=== PATIENT | female | born 1980 | race Caucasian/White ===

== ENCOUNTER 2016-11-24 11:14 | Emergency (ER) | payer MEDICAID ==
[~2016-11-24] VITALS: Ht 165.1 cm; Wt 69.5 kg
[~2016-11-24 11:14] MED LIST: LAMO150T3 PO; LAMO200T3 PO; LEVE100020 PO
[2016-11-24 11:19] VITALS: BP 147/81
== END 2016-11-24 12:11 ==
LOC: ED 12:05
DX: J45.31 Mild persistent asthma with (acute) exacerbation (principal); J20.8 Acute bronchitis due to other specified organisms; B96.89 Other specified bacterial agents as the cause of diseases classified elsewhere; F17.210 Nicotine dependence, cigarettes, uncomplicated
CPT/HCPCS: 99283

== ENCOUNTER 2017-01-19 17:24 | Emergency (ER) | payer MEDICAID ==
[~2017-01-19] VITALS: Ht 162.6 cm; Wt 69.0 kg
[2017-01-19 17:31] VITALS: BP 135/87
[2017-01-19] MEDS ORDERED: LIDOCAINE 1%, 20ML SQ ONE (18:00)
[2017-01-19] MEDS ORDERED: LIDOCAINE 1%, 20ML ONE (18:40)
== END 2017-01-19 19:43 | disposition home or self-care (01) ==
LOC: ED 19:20
DX: N76.2 Acute vulvitis (principal); N76.4 Abscess of vulva; G40.909 Epilepsy, unspecified, not intractable, without status epilepticus
CPT/HCPCS: 56405

== ENCOUNTER 2017-01-21 18:00 | Emergency (ER) | payer MEDICAID ==
[~2017-01-21] VITALS: Ht 165.1 cm; Wt 68.6 kg
[2017-01-21 18:52] LABS: HEMATOCRIT 41.8 % (34.6-47.8); HEMOGLOBIN 13.9 g/dL (11.7-16.4); WHITE BLOOD COUNT 7.2 x10^3/uL (3.4-10)
[2017-01-21] MEDS ORDERED: ONDANSETRON 2MG/ML, 2ML IVPush ONE (19:00)
[2017-01-21] MEDS ORDERED: HYDROmorphone 1 MG/ML, 1ML IVPush PRN (19:00)
[2017-01-21] MEDS ORDERED: SODIUM CHLORIDE FLUSH 10ML SYR IVF ONE (19:00)
[2017-01-21] MEDS ORDERED: HYDROcodone/APAP 5/325 TABLET PO ONE (19:00)
[2017-01-21 19:08] LABS: ASPARTATE AMINO TRANSFERASE 55 U/L (15-37); BLOOD UREA NITROGEN 13 mg/dL (7-18)
[2017-01-21] MEDS ORDERED: HYDROcodone/APAP 5/325 TABLET ONE (19:08)
[2017-01-21 19:39] VITALS: BP 116/76
== END 2017-01-21 19:41 | disposition home or self-care (01) ==
LOC: ED 18:55
DX: N76.4 Abscess of vulva (principal); R10.2 Pelvic and perineal pain; G40.909 Epilepsy, unspecified, not intractable, without status epilepticus
CPT/HCPCS: 36415; 80053; 85025; 99284

== ENCOUNTER 2017-02-23 10:28 | Emergency (ER) | payer MEDICAID ==
[~2017-02-23] VITALS: Ht 162.6 cm; Wt 68.2 kg
[2017-02-23 10:52] VITALS: BP 112/72
[2017-02-23] MEDS ORDERED: LIDOCAINE 1%, 20ML SQ ONE (11:30)
[2017-02-23] MEDS ORDERED: LIDOCAINE 1%, 10ML ONE (11:40)
[2017-02-23] MEDS ORDERED: IBUPROFEN 200 MG TABLET PO ONE (12:00)
[2017-02-23] MEDS ORDERED: IBUPROFEN 200 MG TABLET ONE (12:17)
== END 2017-02-23 12:22 | disposition home or self-care (01) ==
LOC: ED 12:00
DX: L02.214 Cutaneous abscess of groin (principal); L03.314 Cellulitis of groin; J45.909 Unspecified asthma, uncomplicated
CPT/HCPCS: 10060; 56405; 99283; 99284

== ENCOUNTER 2017-04-30 17:21 | Inpatient (IN) | payer MEDICAID ==
[~2017-04-30] VITALS: Ht 162.6 cm; Wt 67.3 kg
[2017-04-30] MEDS ORDERED: DIPHENHYDRAMINE 50 MG/ML, 1ML IM ONE (17:30)
[2017-04-30] MEDS ORDERED: FAMOTIDINE 20 MG TABLET PO ONE (17:30)
[2017-04-30] MEDS ORDERED: DIPHENHYDRAMINE 50 MG CAPSULE ONE (17:47)
[2017-04-30] MEDS ORDERED: FAMOTIDINE 20 MG TABLET ONE ×2 (17:47→20:57)
[2017-04-30] MEDS ORDERED: ALBU2.5V11 NEB (17:53)
[2017-04-30] MEDS ORDERED: DIPHENHYDRAMINE 50 MG CAPSULE PO ONE (17:56)
[2017-04-30] MEDS ORDERED: SODIUM CHLORIDE FLUSH 10ML SYR IVF ONE (19:30)
[2017-04-30] MEDS ORDERED: EPINEPHRINE 1 MG/ML, 1ML ONE (19:30)
[2017-04-30] MEDS ORDERED: EPINEPHRINE 1 MG/ML, 1ML SQ ONE (19:30)
[2017-04-30 20:30] LABS: BASOPHILS # (AUTO) 0.03 x10^3/uL (0-0.1); BASOPHILS % (AUTO) 0 % (0-1); EOSINOPHILS # (AUTO) 0.02 x10^3/uL (0-0.4); EOSINOPHILS % (AUTO) 0 % (1-7); LYMPHOCYTES # (AUTO) 2.15 x10^3/uL (1-3.4); LYMPHOCYTES % (AUTO) 22 % (22-44); MD NO; MEAN CORPUSCULAR HEMOGLOBIN 30.2 pg (27.0-34.8); MEAN CORPUSCULAR HGB CONC 33.1 g/dL (32.4-35.8); MEAN CORPUSCULAR VOLUME 91.3 fL (80-100); MEAN PLATELET VOLUME 6.7 fL (7.4-10.4); MONOCYTES # (AUTO) 0.26 x10^3/uL (0.2-0.8); MONOCYTES % (AUTO) 3 % (2-9); NEUTROPHILS # (AUTO) 7.52 x10^3/uL (1.8-6.8); NEUTROPHILS % (AUTO) 75 % (42-75); PLATELET COUNT 565 x10^3/uL (130-400); RED BLOOD COUNT 4.51 x10^6/uL (3.82-5.3); RED CELL DISTRIBUTION WIDTH 14.7 % (9.6-15.2)
[2017-04-30] MEDS ORDERED: methylPREDNISolone SOD SUCC 125 MG/2 ML IVPush ONE (20:30)
[2017-04-30] MEDS ORDERED: SODIUM CHLORIDE 0.9%, 500ML IVBOLUS ONE (20:30)
[2017-04-30] MEDS ORDERED: methylPREDNISolone SOD SUCC 125 MG/2 ML IVPush SCH (20:30)
[2017-04-30 20:38] LABS: ALANINE AMINOTRANSFERASE 24 U/L (12-78); ALBUMIN 3.8 g/dL (3.4-5.0); ANION GAP 8 mmol/L (5-15); CHLORIDE 109 mmol/L (98-107); CREATININE 0.72 mg/dL (0.55-1.02)
[2017-04-30 20:41] LABS: ALKALINE PHOSPHATASE 90 U/L (45-117); BILIRUBIN,TOTAL 0.3 mg/dL (0.2-1.0); TOTAL PROTEIN 7.5 g/dL (6.4-8.2)
[2017-04-30] MEDS ORDERED: LEVE500T8 PO (20:51)
[2017-04-30] MEDS ORDERED: LAMO150T2 PO (20:51)
[2017-04-30] MEDS ORDERED: LEVETIRACETAM 500 MG TABLET ONE (20:57)
[2017-04-30] MEDS ORDERED: methylPREDNISolone SOD SUCC 125 MG/2 ML ONE (20:58)
[2017-04-30] MEDS ORDERED: DIPHENHYDRAMINE 50 MG/ML, 1ML IVPush PRN (21:00)
[2017-04-30] MEDS ORDERED: LAMOTRIGINE 100 MG TABLET PO SCH (21:00)
[2017-04-30] MEDS ORDERED: LEVETIRACETAM 500 MG TABLET PO SCH (21:00)
[2017-04-30] MEDS: methylPREDNISolone SOD SUCC 125 MG/2 ML IVPush SCH (21:00)
[2017-04-30] MEDS: LEVETIRACETAM 500 MG TABLET PO SCH (21:03)
[2017-04-30] MEDS: LAMOTRIGINE 100 MG TABLET PO SCH (21:03)
[2017-04-30] MEDS: FAMOTIDINE 20 MG TABLET PO SCH (21:04)
[2017-04-30] MEDS ORDERED: BISACODYL 10 MG SUPP PR PRN (21:30)
[2017-04-30] MEDS ORDERED: ACETAMINOPHEN 325 MG TABLET PO PRN (21:30)
[2017-04-30] MEDS ORDERED: ONDANSETRON 2MG/ML, 2ML IVPush PRN (21:30)
[2017-04-30] MEDS: NICOTINE 14MG/24 HR PATCH.TD24 TD SCH (21:30)
[2017-04-30] MEDS ORDERED: POLYETHYLENE GLYCOL 17 GM PACKET PO PRN (21:30)
[2017-04-30] MEDS: SODIUM CHLORIDE FLUSH 10ML SYR IVF SCH (21:30)
[2017-04-30 21:54] VITALS: BP 124/73
[2017-04-30] MEDS ORDERED: ALBUTEROL SULFATE 2.5 MG/3 ML NPPB PRN (23:00)
[2017-05-01 03:00] VITALS: BP 115/62
[2017-05-01] MEDS: methylPREDNISolone SOD SUCC 125 MG/2 ML IVPush SCH ×3 (06:18→20:39)
[2017-05-01 06:37] VITALS: BP 102/48
[2017-05-01] MEDS: LEVETIRACETAM 500 MG TABLET PO SCH ×2 (08:09→20:39)
[2017-05-01] MEDS: LAMOTRIGINE 100 MG TABLET PO SCH ×2 (08:09→20:39)
[2017-05-01] MEDS: SENNA/DOCUSATE TABLET PO SCH (08:10)
[2017-05-01] MEDS: SODIUM CHLORIDE FLUSH 10ML SYR IVF SCH ×2 (08:10→20:40)
[2017-05-01] MEDS: FAMOTIDINE 20 MG TABLET PO SCH ×2 (08:10→20:39)
[2017-05-01 12:44] VITALS: BP 116/60
[2017-05-01] MEDS ORDERED: FLU VACC QS2017-18 (36MOS+) UP/PF 0.5 ML IM-VACC ONE (19:30)
[2017-05-01 20:36] VITALS: BP 126/66
[2017-05-01] MEDS: NICOTINE 14MG/24 HR PATCH.TD24 TD SCH (20:39)
[2017-05-02 03:55] VITALS: BP 115/58
[2017-05-02] MEDS: methylPREDNISolone SOD SUCC 125 MG/2 ML IVPush SCH ×3 (05:16→21:22)
[2017-05-02 07:59] VITALS: BP 113/59
[2017-05-02] MEDS: SENNA/DOCUSATE TABLET PO SCH (09:17)
[2017-05-02] MEDS: LAMOTRIGINE 100 MG TABLET PO SCH (09:18)
[2017-05-02] MEDS: SODIUM CHLORIDE FLUSH 10ML SYR IVF SCH ×2 (09:18→21:22)
[2017-05-02] MEDS: LEVETIRACETAM 500 MG TABLET PO SCH ×2 (09:18→21:23)
[2017-05-02] MEDS: FAMOTIDINE 20 MG TABLET PO SCH ×2 (09:18→21:23)
[2017-05-02 13:40] VITALS: BP 116/62
[2017-05-02 18:32] VITALS: BP 128/66
[2017-05-02] MEDS: NICOTINE 14MG/24 HR PATCH.TD24 TD SCH (21:30)
[2017-05-03 01:28] VITALS: BP 119/60
[2017-05-03] MEDS: methylPREDNISolone SOD SUCC 125 MG/2 ML IVPush SCH (04:22)
[2017-05-03 05:50] LABS: CHLORIDE 108 mmol/L (98-107)
[2017-05-03 05:55] LABS: ANION GAP 8 mmol/L (5-15); CREATININE 0.62 mg/dL (0.55-1.02)
[2017-05-03 06:14] LABS: BASOPHILS # (AUTO) 0.01 x10^3/uL (0-0.1); BASOPHILS % (AUTO) 0 % (0-1); EOSINOPHILS % (AUTO) 0 % (1-7); LYMPHOCYTES % (AUTO) 10 % (22-44); MD NO; MEAN CORPUSCULAR HEMOGLOBIN 30.5 pg (27.0-34.8); MEAN CORPUSCULAR HGB CONC 33.2 g/dL (32.4-35.8); MEAN CORPUSCULAR VOLUME 91.9 fL (80-100); MEAN PLATELET VOLUME 7.6 fL (7.4-10.4); MONOCYTES # (AUTO) 0.54 x10^3/uL (0.2-0.8); MONOCYTES % (AUTO) 6 % (2-9); NEUTROPHILS # (AUTO) 7.76 x10^3/uL (1.8-6.8); NEUTROPHILS % (AUTO) 84 % (42-75); PLATELET COUNT 444 x10^3/uL (130-400); RED BLOOD COUNT 4.11 x10^6/uL (3.82-5.3); RED CELL DISTRIBUTION WIDTH 14.9 % (9.6-15.2)
[2017-05-03 07:15] VITALS: BP 128/70
[2017-05-03] MEDS ORDERED: POTASSIUM CHLORIDE 20 MEQ TAB.ER.PRT PO ONE (07:30)
[2017-05-03] MEDS: SENNA/DOCUSATE TABLET PO SCH (09:52)
[2017-05-03] MEDS: FAMOTIDINE 20 MG TABLET PO SCH (10:09)
[2017-05-03] MEDS: LEVETIRACETAM 500 MG TABLET PO SCH (10:09)
[2017-05-03] MEDS: SODIUM CHLORIDE FLUSH 10ML SYR IVF SCH (10:09)
[2017-05-03] MEDS ORDERED: PRED20TA PO (13:49)
== END 2017-05-03 16:06 | disposition home or self-care (01) | DRG 916 ==
LOC: ED 18:00 → EDIP 21:28 → 3NW 21:51 → OBSVTOIN 05-02 12:21
PROVIDERS: ADMIT Hospitalist; ATTEND Hospitalist
DX: T78.3XXA Angioneurotic edema, initial encounter (principal); D47.3 Essential (hemorrhagic) thrombocythemia; G40.909 Epilepsy, unspecified, not intractable, without status epilepticus; J45.909 Unspecified asthma, uncomplicated; F17.210 Nicotine dependence, cigarettes, uncomplicated; T88.7XXA Unspecified adverse effect of drug or medicament, initial encounter; T42.6X5A Adverse effect of other antiepileptic and sedative-hypnotic drugs, initial encounter; Y84.8 Other medical procedures as the cause of abnormal reaction of the patient, or of later complication, without mention of misadventure at the time of the procedure; Y82.8 Other medical devices associated with adverse incidents; Y92.89 Other specified places as the place of occurrence of the external cause; Z88.6 Allergy status to analgesic agent; Z91.018 Allergy to other foods; Z98.51 Tubal ligation status
CPT/HCPCS: 36415; 80048; 80053; 85025; 93005; 96372; 96374; 96375; G0378; J0171; J2930; J7040; J7512

== ENCOUNTER 2017-09-19 06:39 | Emergency (ER) | payer MEDICAID ==
[~2017-09-19] VITALS: Ht 162.6 cm; Wt 65.9 kg
[~2017-09-19 06:39] MED LIST changes: +ALBU2.5V11 NEB; +LAMO150T2 PO; +LEVE500T8 PO; +PRED20TA PO
[2017-09-19 07:22] VITALS: BP 118/69
== END 2017-09-19 07:28 | disposition home or self-care (01) ==
LOC: ED 07:20
DX: L02.211 Cutaneous abscess of abdominal wall (principal); F17.210 Nicotine dependence, cigarettes, uncomplicated
CPT/HCPCS: 10060; 99283

== ENCOUNTER 2017-09-21 12:38 | Emergency (ER) | payer MEDICAID ==
[~2017-09-21] VITALS: Ht 162.6 cm; Wt 64.0 kg
[2017-09-21 12:43] VITALS: BP 126/80
== END 2017-09-21 13:40 | disposition home or self-care (01) ==
LOC: ED 13:34
DX: L02.211 Cutaneous abscess of abdominal wall (principal)
CPT/HCPCS: 99283

== ENCOUNTER 2017-12-06 08:54 | Emergency (ER) | payer MEDICAID, OTHER ==
[~2017-12-06] VITALS: Ht 165.1 cm; Wt 64.9 kg
[2017-12-06] MEDS ORDERED: METHOCARBAMOL 750 MG TABLET PO ONE (09:30)
[2017-12-06] MEDS ORDERED: KETOROLAC 30 MG/1 ML IM ONE (09:30)
[2017-12-06] MEDS ORDERED: HYDROcodone/APAP 5/325 TABLET PO ONE (09:30)
[2017-12-06] MEDS ORDERED: METHOCARBAMOL 750 MG TABLET ONE (09:55)
[2017-12-06] MEDS ORDERED: KETOROLAC 30 MG/1 ML ONE (09:55)
[2017-12-06] MEDS ORDERED: HYDROcodone/APAP 5/325 TABLET ONE (09:56)
[2017-12-06 09:58] VITALS: BP 128/87
== END 2017-12-06 10:32 | disposition home or self-care (01) ==
LOC: ED 09:23
DX: S16.1XXA Strain of muscle, fascia and tendon at neck level, initial encounter (principal); S29.011A Strain of muscle and tendon of front wall of thorax, initial encounter; X58.XXXA Exposure to other specified factors, initial encounter; Y93.89 Activity, other specified; Y92.89 Other specified places as the place of occurrence of the external cause; Y99.8 Other external cause status
CPT/HCPCS: 96372; 99283; J1885

== ENCOUNTER 2017-12-16 19:48 | Emergency (ER) | payer OTHER ==
[~2017-12-16] VITALS: Ht 162.6 cm; Wt 64.1 kg
[2017-12-16 19:50] VITALS: BP 129/86
== END 2017-12-16 21:01 | disposition home or self-care (01) ==
LOC: ED 20:40
DX: G40.919 Epilepsy, unspecified, intractable, without status epilepticus (principal); Z76.0 Encounter for issue of repeat prescription; J45.909 Unspecified asthma, uncomplicated
CPT/HCPCS: 99283

== ENCOUNTER 2018-01-21 09:06 | Emergency (ER) | payer OTHER ==
[~2018-01-21] VITALS: Ht 165.1 cm; Wt 65.9 kg
[2018-01-21] MEDS ORDERED: ACETAMINOPHEN 500 MG TABLET PO ONE (09:30)
[2018-01-21] MEDS ORDERED: LEVETIRACETAM 500 MG TABLET PO ONE (09:30)
[2018-01-21] MEDS ORDERED: LAMOTRIGINE 100 MG TABLET PO ONE (09:30)
[2018-01-21 09:41] LABS: BASOPHILS # (AUTO) 0.09 x10^3/uL (0-0.1); BASOPHILS % (AUTO) 2 % (0-1); EOSINOPHILS # (AUTO) 0.03 x10^3/uL (0-0.4); EOSINOPHILS % (AUTO) 1 % (1-7); LYMPHOCYTES # (AUTO) 1.54 x10^3/uL (1-3.4); LYMPHOCYTES % (AUTO) 24 % (22-44); MD NO; MEAN CORPUSCULAR HEMOGLOBIN 30.4 pg (27.0-34.8); MEAN CORPUSCULAR VOLUME 91.9 fL (80-100); MEAN PLATELET VOLUME 6.8 fL (7.4-10.4); MONOCYTES # (AUTO) 0.62 x10^3/uL (0.2-0.8); MONOCYTES % (AUTO) 10 % (2-9); NEUTROPHILS # (AUTO) 4.23 x10^3/uL (1.8-6.8); NEUTROPHILS % (AUTO) 65 % (42-75); PLATELET COUNT 461 x10^3/uL (130-400); RED BLOOD COUNT 4.73 x10^6/uL (3.82-5.3); RED CELL DISTRIBUTION WIDTH 13.9 % (9.6-15.2)
[2018-01-21] MEDS ORDERED: LEVETIRACETAM 500 MG TABLET ONE (09:44)
[2018-01-21] MEDS ORDERED: ACETAMINOPHEN 500 MG TABLET ONE (09:44)
[2018-01-21 09:48] LABS: ALANINE AMINOTRANSFERASE 29 U/L (12-78); ALBUMIN 3.7 g/dL (3.4-5.0); ANION GAP 5 mmol/L (5-15); CALCIUM 8.9 mg/dL (8.5-10.1); CHLORIDE 108 mmol/L (98-107); CREATININE 0.67 mg/dL (0.55-1.02)
[2018-01-21 09:50] LABS: ALKALINE PHOSPHATASE 107 U/L (45-117); BILIRUBIN,TOTAL 0.2 mg/dL (0.2-1.0); TOTAL PROTEIN 7.8 g/dL (6.4-8.2)
[2018-01-21 11:08] VITALS: BP 104/58
== END 2018-01-21 11:11 | disposition home or self-care (01) ==
LOC: ED 09:13
DX: G40.919 Epilepsy, unspecified, intractable, without status epilepticus (principal); F17.210 Nicotine dependence, cigarettes, uncomplicated
CPT/HCPCS: 36415; 80053; 85025; 93005; 99284

== ENCOUNTER 2019-02-25 07:34 | Emergency (ER) | payer MEDICAID, OTHER ==
[~2019-02-25] VITALS: Ht 165.1 cm; Wt 72.0 kg
--- NOTE | 2019-02-25 08:10 | NUR ---
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
--- NOTE | 2019-02-25 08:13 | NUR ---
THIS IS A 38 YEAR OLD FEMALE WHO C/O OF PAIN R SIDE STARTING AT 2 AM, PT REPORTS SITE IS HARD. ASSOC NAUSEA. PAIN 9/10. DISCUSS NEED FOR URINE, PT TO BATHROOM
[2019-02-25 08:48] LABS: BASOPHILS # (AUTO) 0.05 x10^3/uL (0-0.1); BASOPHILS % (AUTO) 1 % (0-1); EOSINOPHILS # (AUTO) 0.05 x10^3/uL (0-0.4); EOSINOPHILS % (AUTO) 1 % (1-7); LYMPHOCYTES # (AUTO) 1.94 x10^3/uL (1-3.4); LYMPHOCYTES % (AUTO) 32 % (22-44); MD NO; MEAN CORPUSCULAR HEMOGLOBIN 31.2 pg (27.0-34.8); MEAN CORPUSCULAR HGB CONC 32.9 g/dL (32.4-35.8); MEAN CORPUSCULAR VOLUME 94.7 fL (80-100); MEAN PLATELET VOLUME 6.4 fL (7.4-10.4); MONOCYTES # (AUTO) 0.48 x10^3/uL (0.2-0.8); MONOCYTES % (AUTO) 8 % (2-9); NEUTROPHILS # (AUTO) 3.62 x10^3/uL (1.8-6.8); NEUTROPHILS % (AUTO) 59 % (42-75); PLATELET COUNT 433 x10^3/uL (130-400); RED BLOOD COUNT 4.31 x10^6/uL (3.82-5.3); RED CELL DISTRIBUTION WIDTH 13.8 % (9.6-15.2)
--- NOTE | 2019-02-25 08:48 | NUR ---
REPORT TO ELGIN MAYORGA, PLAN OF CARE DISCUSSED
[2019-02-25] MEDS ORDERED: MORPHINE SULFATE 4 MG/ML, 1ML IVPush PRN (09:00)
[2019-02-25 09:01] LABS: ALANINE AMINOTRANSFERASE 32 U/L (12-78); ALBUMIN 3.4 g/dL (3.4-5.0); ANION GAP 5 mmol/L (5-15); CALCIUM 8.6 mg/dL (8.5-10.1); CHLORIDE 109 mmol/L (98-107)
[2019-02-25 09:03] LABS: ALKALINE PHOSPHATASE 84 U/L (45-117); BILIRUBIN,TOTAL 0.2 mg/dL (0.2-1.0); TOTAL PROTEIN 6.8 g/dL (6.4-8.2)
[2019-02-25] MEDS ORDERED: FAMOTIDINE 20 MG/2 ML ONE (09:07)
[2019-02-25] MEDS ORDERED: MORPHINE SULFATE 4 MG/ML, 1ML ONE (09:07)
[2019-02-25] MEDS ORDERED: ONDANSETRON 2MG/ML, 2ML ONE (09:07)
--- NOTE | 2019-02-25 09:15 | NUR ---
US AT BEDSIDE, COMPLETED, UA SENT.
[2019-02-25 09:29] LABS: HCG UR SG 1.025 (1.003-1.030); MICROSCOPIC AUTO
[2019-02-25 09:34] VITALS: BP 122/71
--- NOTE | 2019-02-25 09:36 | NUR ---
medicated per orders, fluids infusing. iv established
[2019-02-25 09:44] LABS: CULTURE INDICATED? YES
[2019-02-25] MEDS ORDERED: SODIUM CHLORIDE 0.9% 1,000 ML IV ONE (10:00)
[2019-02-25] MEDS ORDERED: FAMOTIDINE 20 MG/2 ML IV ONE (10:00)
[2019-02-25] MEDS ORDERED: SODIUM CHLORIDE FLUSH 10ML SYR IVF ONE (10:00)
[2019-02-25] MEDS ORDERED: ONDANSETRON 2MG/ML, 2ML IVPush ONE (10:00)
--- NOTE | 2019-02-25 10:45 | NUR ---
Patient/Caregiver given discharge instructions and they have confirmed that they understand the instructions. Patient ambulatory with steady gait.
== END 2019-02-25 11:15 | disposition home or self-care (01) ==
LOC: ED 09:39
DX: K80.20 Calculus of gallbladder without cholecystitis without obstruction (principal); N30.00 Acute cystitis without hematuria; J45.909 Unspecified asthma, uncomplicated; F17.210 Nicotine dependence, cigarettes, uncomplicated; Z90.89 Acquired absence of other organs
CPT/HCPCS: 36415; 76700; 80053; 81001; 81025; 83690; 85025; 87086; 87186; 96374; 96375; 99284; J2270; J2405; J3490; J7030

== ENCOUNTER 2019-03-13 22:16 | Day surgery (SDC) | payer OTHER ==
[~2019-03-13] VITALS: Ht 162.6 cm; Wt 80.4 kg
--- NOTE | 2019-03-14 00:30 | NUR ---
pt to room from lobby
[2019-03-14 01:00] LABS: MICROSCOPIC NOT IND
[2019-03-14] MEDS ORDERED: KETOROLAC 30 MG/1 ML IM ONE (01:00)
[2019-03-14] MEDS ORDERED: KETOROLAC 60 MG/2 ML ONE (01:01)
[2019-03-14 01:02] LABS: CULTURE INDICATED? NO
[2019-03-14 01:13] LABS: CALCIUM 8.5 mg/dL (8.5-10.1); CHLORIDE 111 mmol/L (98-107)
[2019-03-14 01:14] LABS: ALANINE AMINOTRANSFERASE 57 U/L (12-78); ALBUMIN 3.5 g/dL (3.4-5.0)
[2019-03-14 01:17] LABS: MEAN CORPUSCULAR HEMOGLOBIN 31.2 pg (27.0-34.8); MEAN CORPUSCULAR HGB CONC 33.5 g/dL (32.4-35.8); MEAN CORPUSCULAR VOLUME 93.2 fL (80-100); MEAN PLATELET VOLUME 6.9 fL (7.4-10.4); PLATELET COUNT 395 x10^3/uL (130-400); RED BLOOD COUNT 4.32 x10^6/uL (3.82-5.3); RED CELL DISTRIBUTION WIDTH 13.4 % (9.6-15.2)
[2019-03-14 01:18] LABS: ALKALINE PHOSPHATASE 103 U/L (45-117); BILIRUBIN,TOTAL 0.2 mg/dL (0.2-1.0)
[2019-03-14 01:38] LABS: ANION GAP 4 mmol/L (5-15)
--- NOTE | 2019-03-14 01:43 | NUR ---
PT RESTING COMFORTABLY. MONITOR IN PLACE. UPDATED PT ON POC. NO OTHER NEEDS AT THIS TIME.
[2019-03-14 01:59] LABS: BASOPHILS # (AUTO) 0.01 x10^3/uL (0-0.1); BASOPHILS % (AUTO) 1 % (0-1); EOSINOPHILS # (AUTO) 0.02 x10^3/uL (0-0.4); EOSINOPHILS % (AUTO) 1 % (1-7); LYMPHOCYTES # (AUTO) 1.08 x10^3/uL (1-3.4); LYMPHOCYTES % (AUTO) 40 % (22-44); MD SCAN; MONOCYTES % (AUTO) 15 % (2-9); NEUTROPHILS # (AUTO) 1.17 x10^3/uL (1.8-6.8); NEUTROPHILS % (AUTO) 44 % (42-75)
--- NOTE | 2019-03-14 02:05 | NUR ---
AGRICULTURAL PILOT: DR. VILLALBA PAGED PER DR. MARTINEZ
--- NOTE | 2019-03-14 02:22 | NUR ---
PT RESTING WITH EYES CLOSED. FAMILY AT BEDSIDE. MONITOR IN PLACE.
[2019-03-14] MEDS ORDERED: SODIUM CHLORIDE 0.9% 1,000 ML IV ONE (02:37)
[2019-03-14] MEDS ORDERED: ONDANSETRON 2MG/ML, 2ML IVPush PRN (03:00)
[2019-03-14] MEDS ORDERED: HYDROmorphone 1 MG/ML, 1ML INJ IVPush PRN (03:00)
[2019-03-14 03:53] VITALS: BP 114/75
[2019-03-14 06:41] VITALS: BP 98/57
[2019-03-14] MEDS: LAMOTRIGINE 100 MG TABLET PO SCH ×2 (07:54→21:51)
[2019-03-14] MEDS: LEVETIRACETAM 500 MG TABLET PO SCH ×2 (07:54→21:51)
[2019-03-14] MEDS: ACETAMINOPHEN 500 MG TABLET PO SCH ×2 (10:03→16:00)
[2019-03-14] MEDS: IBUPROFEN 800 MG TABLET PO SCH ×3 (10:03→21:51)
[2019-03-14] MEDS ORDERED: OXYcodone IR 5MG TABLET PO PRN (11:00)
[2019-03-14 12:55] VITALS: BP 105/57
[2019-03-14] MEDS ORDERED: INDOCYANINE GREEN 25 MG VIAL IV ONE (15:30)
[2019-03-14] MEDS ORDERED: BUPIVACAINE/PF 0.5% ONE (16:25)
[2019-03-14] MEDS ORDERED: EPINEPHRINE 1 MG/ML, 1ML ONE (16:25)
[2019-03-14] MEDS ORDERED: PROPOFOL 50 ML ONE (16:45)
[2019-03-14] MEDS ORDERED: FENTANYL PF 250 MCG/5ML ONE (16:45)
[2019-03-14] MEDS ORDERED: MIDAZOLAM 1 MG/ML, 2ML ONE (16:45)
[2019-03-14] MEDS ORDERED: SUCCINYLCHOLINE 20 MG/ML, 10ML ONE (16:50)
[2019-03-14] MEDS ORDERED: PROPOFOL 10 MG/ML, 20ML ONE (17:11)
[2019-03-14] MEDS ORDERED: CEFAZOLIN 1,000 MG ONE (17:11)
[2019-03-14] MEDS ORDERED: ROCURONIUM 10MG/ML,5ML ONE (17:11)
[2019-03-14] MEDS ORDERED: DEXAMETHASONE 4 MG/ML, 1ML ONE (17:12)
[2019-03-14] MEDS ORDERED: KETOROLAC 30 MG/1 ML ONE (17:12)
[2019-03-14] MEDS ORDERED: ONDANSETRON 2MG/ML, 2ML ONE (17:12)
[2019-03-14] MEDS ORDERED: DIAZEPAM 5 MG/ML, 2ML IVPush PRN (17:30)
[2019-03-14] MEDS ORDERED: MIDAZOLAM 1 MG/ML, 2ML IV PRN (17:30)
[2019-03-14] MEDS ORDERED: HYDROmorphone 2 MG/ML, 1ML IVPush PRN (17:30)
[2019-03-14] MEDS ORDERED: ONDANSETRON 2MG/ML, 2ML IV PRN (17:30)
[2019-03-14] MEDS ORDERED: ONDANSETRON ODT 8 MG PO PRN (17:30)
[2019-03-14] MEDS ORDERED: FENTANYL PF 100 MCG/2ML IV PRN (17:30)
[2019-03-14] MEDS ORDERED: DIPHENHYDRAMINE 50 MG/ML, 1ML IVPush PRN (17:30)
[2019-03-14] MEDS ORDERED: OXYcodone 5 MG/5 ML ORAL.SOL UDC PO PRN (17:30)
[2019-03-14] MEDS ORDERED: PROMETHAZINE 25 MG/ML, 1ML IV PRN (17:30)
[2019-03-14] MEDS ORDERED: EPHEDRINE 50 MG/ML, 1ML IM PRN (17:30)
[2019-03-14] MEDS ORDERED: MEPERIDINE/PF 25MG/ML,1ML IVPush PRN (17:30)
[2019-03-14] MEDS ORDERED: EPHEDRINE 50 MG/ML, 1ML IVPush PRN (17:30)
[2019-03-14] MEDS ORDERED: IBUP-1223 PO (17:44)
[2019-03-14] MEDS ORDERED: OXYC5TAB3 PO (17:44)
[2019-03-14] MEDS ORDERED: ACET500T64 PO (17:44)
[2019-03-14 21:57] VITALS: BP 122/77
== END 2019-03-14 22:20 | disposition home or self-care (01) ==
LOC: ED 03-14 01:44 → OR 03-14 02:37 → UNDOADMIN 03-14 02:37 → EDIP 03-14 02:37 → 4NE 03-14 03:45 → UNDODISIN 03-14 22:20 → OR 03-14 22:20
PROVIDERS: ATTEND Student in an Organized Health Care Education/Training Program
DX: K80.10 Calculus of gallbladder with chronic cholecystitis without obstruction (principal); F17.210 Nicotine dependence, cigarettes, uncomplicated; F19.90 Other psychoactive substance use, unspecified, uncomplicated; Z88.8 Allergy status to other drugs, medicaments and biological substances; Z98.51 Tubal ligation status; Z88.5 Allergy status to narcotic agent
CPT/HCPCS: 36415; 47563; 76700; 80053; 81003; 83690; 84703; 85025; 88304; 99285; J0171; J0330; J0690; J1100; J1885; J2250; J2405; J2704; J3010; J7030; G0378

== ENCOUNTER → 2019-03-22 | Outpatient (CLI) | payer OTHER ==
[~2019-03-22] MED LIST changes: +ACET500T64 PO; +IBUP-1223 PO; +OMNIPAQUE 350 MG/ML, 100ML BOTTLE ONE; +OXYC5TAB3 PO
== END | disposition home or self-care (01) ==
LOC: CFH 12:39
PROVIDERS: ATTEND Student in an Organized Health Care Education/Training Program
DX: K59.00 Constipation, unspecified (principal); K80.20 Calculus of gallbladder without cholecystitis without obstruction; R60.9 Edema, unspecified; J98.11 Atelectasis
CPT/HCPCS: 74177; Q9967

== ENCOUNTER 2020-06-27 10:29 | Emergency (ER) | payer OTHER ==
[~2020-06-27] VITALS: Ht 165.1 cm; Wt 71.1 kg
[~2020-06-27 10:29] MED LIST changes: -LAMO150T2 PO; +LAMO150T4 PO; -OMNIPAQUE 350 MG/ML, 100ML BOTTLE ONE; -OXYC5TAB3 PO; +OXYC5TAB98 PO
--- NOTE | 2020-06-27 10:45 | NUR ---
Noted pt sitting in room awaiting assessment without acute distress talking on her phone.
--- NOTE | 2020-06-27 11:05 | NUR ---
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 Pt states pain is 8/10 at laceration site. PA arrived at end of assessment and notified of pain rating.
[2020-06-27] MEDS ORDERED: LIDOCAINE-MPF 1%, 5ML INFIL ONE (11:30)
[2020-06-27] MEDS ORDERED: DIPH,PERTUSS(ACELL),TET VAC/PF 0.5 ML IM-VACC ONE ×2 (11:30→11:31)
[2020-06-27] MEDS ORDERED: LIDOCAINE-MPF 1%, 5ML ONE (11:31)
--- NOTE | 2020-06-27 11:35 | NUR ---
Lidocaine brought to bedside for PA and TDaP given with aseptic technique to L deltoid. Pt tolerated with minimal s/s pain and site covered with bandaid. polysomnography technologist present at bedside for wound cleaning at this time.
--- NOTE | 2020-06-27 11:59 | NUR ---
PA at bedside suturing pt now.
[2020-06-27] MEDS ORDERED: NEOSPORIN OINT. PKT 1 PACKET ONE (12:25)
[2020-06-27 12:35] VITALS: BP 126/74
== END 2020-06-27 13:09 | disposition home or self-care (01) ==
LOC: ED 11:33
DX: S61.511A Laceration without foreign body of right wrist, initial encounter (principal); X58.XXXA Exposure to other specified factors, initial encounter; Y93.89 Activity, other specified; Y92.89 Other specified places as the place of occurrence of the external cause; Y99.8 Other external cause status
CPT/HCPCS: 12041; 90471; 90715; 99284

== ENCOUNTER 2020-07-01 09:46 | Emergency (ER) | payer OTHER ==
[~2020-07-01] VITALS: Ht 165.1 cm; Wt 70.3 kg
--- NOTE | 2020-07-01 10:15 | NUR ---
assumed care of pt. pt here c/o vaginal bleeding and passing clots x3 weeks. pt denies . no urinary c/o. pt reports that she zheng not have a current OBGYN. states that she is having some cramping. no other c/o at this time. no family at bedside
--- NOTE | 2020-07-01 10:34 | NUR ---
Dr. King has been to bedside for eval. pt positioning for comfort
--- NOTE | 2020-07-01 10:50 | NUR ---
pt to US via deep
[2020-07-01 10:57] LABS: MEAN CORPUSCULAR HEMOGLOBIN 31.3 pg (27.0-34.8); MEAN CORPUSCULAR HGB CONC 33.4 g/dL (32.4-35.8); MEAN PLATELET VOLUME 6.4 fL (7.4-10.4); PLATELET COUNT 365 x10^3/uL (130-400); RED BLOOD COUNT 4.18 x10^6/uL (3.82-5.3); RED CELL DISTRIBUTION WIDTH 14.1 % (9.6-15.2)
[2020-07-01 11:08] LABS: ALBUMIN 3.6 g/dL (3.4-5.0); CALCIUM 8.6 mg/dL (8.5-10.1); CREATININE 0.73 mg/dL (0.55-1.02)
--- NOTE | 2020-07-01 11:15 | NUR ---
pt still in US
[2020-07-01 11:18] LABS: CHLORIDE 110 mmol/L (98-107)
[2020-07-01 11:19] LABS: ANION GAP 3 mmol/L (5-15)
[2020-07-01 11:23] LABS: MD YES
[2020-07-01 11:27] LABS: EOS#(MANUAL) 0.04 x10^3/uL (0.0-0.4); EOS% (MANUAL) 1 % (1-7); LYMPH#(MANUAL) 1.94 x10^3/uL (1-3.4); LYMPHS% (MANUAL) 45 % (22-44); MONOS#(MANUAL) 0.65 x10^3/uL (0.3-2.7); MONOS% (MANUAL) 15 % (2-9); REACTIVE LYMPHS # (MANUAL) 0.04 x10^3/uL (0-0); REACTIVE LYMPHS % (MANUAL) 1 % (0-0); SEG#(MANUAL) 1.63 x10^3/uL (1.8-6.8); SEGS% (MANUAL) 38 % (42-75)
[2020-07-01 11:29] LABS: <PLATELET ESTIMATE> ADEQUATE; <PLT MORPHOLOGY> NORMAL PLT MORPH; <RBC MORPHOLOGY> NORMAL
--- NOTE | 2020-07-01 11:34 | NUR ---
pt sitting up on gutney in no apparent distress chart up for recheck
--- NOTE | 2020-07-01 12:18 | NUR ---
report to Nan MAYORGA for lunch
[2020-07-01 12:31] VITALS: BP 130/84
--- NOTE | 2020-07-01 13:01 | NUR ---
this pt was D/C by another RN
== END 2020-07-01 12:33 | disposition home or self-care (01) ==
LOC: ED 12:00
DX: N93.8 Other specified abnormal uterine and vaginal bleeding (principal); N92.1 Excessive and frequent menstruation with irregular cycle; F17.200 Nicotine dependence, unspecified, uncomplicated
CPT/HCPCS: 36415; 76830; 80048; 82040; 84703; 85025; 99284

== ENCOUNTER 2020-09-02 07:29 | Outpatient (CLI) | payer OTHER ==
[2020-09-02] MEDS ORDERED: LIDOCAINE-MPF 1%, 5ML ONE (07:48)
[2020-09-02] MEDS ORDERED: TRIAMCINOLONE ACETONIDE 40 MG/ML, 1ML ONE (07:48)
[2020-09-02] MEDS ORDERED: OMNIPAQUE 300 MG/ML, 10ML VIAL ONE (08:00)
[2020-09-02] MEDS ORDERED: GADOTERATE 5 MMOL/10 ML VIAL ONE (08:00)
[2020-09-02] MEDS ORDERED: ALPRazolam 1MG TAB ONE (08:20)
== END 2020-09-02 23:59 | disposition home or self-care (01) ==
LOC: RAD 07:29
PROVIDERS: ATTEND Family Medicine Sports Medicine
DX: M25.851 Other specified joint disorders, right hip (principal); S73.191A Other sprain of right hip, initial encounter; X58.XXXA Exposure to other specified factors, initial encounter; Y93.89 Activity, other specified; Y92.89 Other specified places as the place of occurrence of the external cause; Y99.8 Other external cause status
CPT/HCPCS: 27093; 73525; 73722; A9575; J3301; Q9967